=== PATIENT | male | born 1970 | race African-American/Black ===

== ENCOUNTER 2021-10-10 12:08 | Outpatient (REF) | payer OTHER, SELFPAY | END 2021-10-10 12:09 | disposition home or self-care (01) | LOC: HO.MDS 12:08 | PROVIDERS: PCP Internal Medicine; Visit Provider Psychiatry & Neurology Neurology | DX: G35 Multiple sclerosis (principal); M10.9 Gout, unspecified | CPT/HCPCS: 96365; J2930 ==

== ENCOUNTER 2021-10-11 11:53 | Outpatient (REF) | payer OTHER, SELFPAY | END 2021-10-11 11:54 | disposition home or self-care (01) | LOC: HO.MDS 11:53 | PROVIDERS: Visit Provider Psychiatry & Neurology Neurology | DX: G35 Multiple sclerosis (principal); M10.9 Gout, unspecified | CPT/HCPCS: 96365; J2930 ==

== ENCOUNTER 2021-10-12 11:56 | Outpatient (REF) | payer OTHER, SELFPAY | END 2021-10-12 11:57 | disposition home or self-care (01) | LOC: HO.MDS 11:56 | PROVIDERS: Visit Provider Psychiatry & Neurology Neurology | DX: G35 Multiple sclerosis (principal); M10.9 Gout, unspecified | CPT/HCPCS: 96365; J2930 ==

== ENCOUNTER 2021-10-13 11:51 | Outpatient (REF) | payer OTHER, SELFPAY | END 2021-10-13 11:52 | disposition home or self-care (01) | LOC: HO.MDS 11:51 | PROVIDERS: Visit Provider Psychiatry & Neurology Neurology | DX: G35 Multiple sclerosis (principal); M10.9 Gout, unspecified | CPT/HCPCS: 96365; J2930 ==

== ENCOUNTER 2021-10-14 11:44 | Outpatient (REF) | payer OTHER, SELFPAY | END 2021-10-14 11:45 | disposition home or self-care (01) | LOC: HO.MDS 11:44 | PROVIDERS: Visit Provider Psychiatry & Neurology Neurology | DX: G35 Multiple sclerosis (principal); M10.9 Gout, unspecified | CPT/HCPCS: 96365; J2930 ==